=== PATIENT | male | born 1995 | race African-American/Black ===

== ENCOUNTER 2023-11-14 17:00 | Emergency (ER) | payer MEDICAID ==
[~2023-11-14] VITALS: Ht 172.7 cm; Wt 86.4 kg
[2023-11-14 17:03] VITALS: BP 135/78; PULSE 97; RESP 16; TEMP 100.1; O2SAT 99
[2023-11-14 17:11] LABS: COVID AG,FIA SOURCE NASAL SWAB
[2023-11-14 18:07] LABS: RAPID GROUP A STREP NEGATIVE (NEGATIVE); SARS-COV2 (COVID) ANTIGEN,FIA Negative (Negative)
[2023-11-14 18:11] LABS: INFLUENZA TYPE A NEGATIVE FOR TYPE A (NEGATIVE); INFLUENZA TYPE B NEGATIVE FOR TYPE B (NEGATIVE)
== END 2023-11-14 18:25 | disposition left against medical advice (07) ==
LOC: EMS 17:06
DX: J02.9 Acute pharyngitis, unspecified (principal); R05.9 Cough, unspecified; R09.81 Nasal congestion; R52 Pain, unspecified; R68.83 Chills (without fever); Z53.21 Procedure and treatment not carried out due to patient leaving prior to being seen by health care provider; Z20.822 Contact with and (suspected) exposure to COVID-19
CPT/HCPCS: 87430; 87804